=== PATIENT | female | born 1995 | race African-American/Black ===

== ENCOUNTER 2017-05-29 14:38 | Emergency (ER) | payer OTHER ==
[~2017-05-29 14:38] MED LIST: AMOXICILLIN500 M1 PO; TUSSIONEX PENN473 ML PO
== END 2017-05-29 15:23 | disposition home or self-care (01) ==
LOC: SED 14:38
DX: L02.211 Cutaneous abscess of abdominal wall (principal)
CPT/HCPCS: 99283